=== PATIENT | female | born 1955 | race Caucasian/White ===

== ENCOUNTER 2016-05-27 09:23 | Emergency (ER) | payer OTHER ==
[~2016-05-27] VITALS: Ht 144.8 cm; Wt 63.0 kg
[~2016-05-27 09:23] MED LIST: ADVA250A INH; ALAV10TA PO; ASTE137S5; BONI150T PO; CEPH500C3 PO; DYAZ37.57 PO; LISI-360 PO; MONT10TA2 PO; PERC5TAB12 PO; [UNRECOGNIZED DRUG - OTHER]
[2016-05-27 09:28] VITALS: BP 148/98; PULSE 73; RESP 16; TEMP 98.4; O2SAT 100
[2016-05-27] MEDS ORDERED: RABIES IMMUNE GLOBULIN INJ 1,500 UNITS/10 ML VIAL IM STA (10:00)
[2016-05-27] MEDS ORDERED: RABIES VACCINE HUMAN DIPL CELL 2.5 UNITS/ML SYRINGE IM ONE (10:00)
[2016-05-27] MEDS ORDERED: TETANUS/DIPHTHERIA TOXOID ADULT 0.5 ML VIAL IM ONE (10:00)
--- NOTE | 2016-05-27 10:07 | PD ---
HPI Chief Complaint: Bite or Sting Time Seen by Provider: 09:48 Travel History International Travel<30 days: No Contact w/Intl Traveler<30days: No Traveled to known affect area: No History of Present Illness HPI This 60-year-old female presents with complaint of possible raccoon bite. She says she was walking her dog last night around midnight. She went fast the car in an animal came out from under the car and bit her on the back of her leg. She thinks it was a raccoon but she is not quite sure. She has some burning at the site of the injury. Her tetanus is not up-to-date. PFSH Past Medical History Asthma: Yes Bipolar Disorder: Yes COPD: Yes Diabetes: Yes Hepatitis: Yes (HEPATITIS A, B, C) Hypertension: Yes Musculoskeletal: Yes (OA, osteroporosis) Respiratory: Yes (ASTHMA ;COPD,HX BRONCHITIS) Thyroid Disease: Yes (GOITER) ?: Not LMP: Diane- Menopausal: Yes Past Surgical History Abdominal Surgery: Yes (APPENDECTOMY) Gynecologic Surgery: Yes (HYSTERECTOMY MARIAN S&O) Hysterectomy: Yes Social History Alcohol Use: No Tobacco Use: Yes (1 PDD) Substance Use: No Allergies-Medications (Allergen,Severity, Reaction): Coded Allergies: Bee Sting (Verified Allergy, Severe, Anaphylaxis, 05/27/16) Codeine (Verified Allergy, Severe, N/V, hives, 05/27/16) Morphine (Verified Allergy, Severe, Hives, edema, 05/27/16) Simvastatin (Verified Allergy, Intermediate, Muscle cramps, 05/27/16) "All -statins" Reported Meds & Prescriptions Reported Meds & Active Scripts Active Reported Omeprazole 40 Mg Cap 40 Mg PO DAILY Percocet (Oxycodone-Acetaminophen) 7.5-325 mg Tab 1 Tab PO TID Claritin (Loratadine) 10 Mg Cap 10 Mg PO DAILY Montelukast (Montelukast Sodium) 4 Mg Chew 4 Mg CHEW HS Vitamin D (Cholecalciferol) 1,000 Unit Cap 1,000 Units PO DAILY Ventolin Hfa 18 GM Inh (Albuterol Sulfate) 90 Mcg/Act Aer 1 Puff INH Q4H PRN Albuterol Neb (Albuterol Sulfate) 0.63 Mg/3 Ml Neb 0.63 Mg NEB TID NEB PRN Advair Diskus Inh (Fluticasone-Salmeterol Inh) 250-50 Mcg/Blist Aer 1 Puff INH BID Rinse mouth after use. Lisinopril 10 Mg Tab 10 Mg PO DAILY Triamterene-Hydrochlorothiazide 37.5-25 Mg Tab 0.5 Tab PO DAILY Review of Systems General / Constitutional: No: Fever, Chills Eyes: No: Diploplia, Blurred Vision HENT: No: Headaches Cardiovascular: No: Chest Pain or Discomfort, Palpitations Respiratory: No: Cough Gastrointestinal: No: Nausea, Vomiting Genitourinary: No: Frequency, Dysuria Musculoskeletal: No: Myalgias, Arthralgias Skin: No Rash Physical Exam Narrative GENERAL: Well-developed female SKIN: Warm and dry. HEAD: Atraumatic. Normocephalic. EYES: Pupils equal and round. No scleral icterus. No injection or drainage. ENT: No nasal bleeding or discharge. Mucous membranes pink and moist. NECK: Trachea midline. No JVD. . MUSCULOSKELETAL: No obvious deformities. No clubbing. No cyanosis. No edema. There are 2 puncture wounds on the back of the left calf. They're not actively bleeding. There is no erythema or drainage. NEUROLOGICAL: Awake and alert. No obvious cranial nerve deficits. Motor grossly within normal limits. Normal speech. PSYCHIATRIC: Appropriate mood and affect; insight and judgment normal. Data Data Last Documented VS Vital Signs Date Time Temp Pulse Resp B/P Pulse Ox O2 Delivery O2 Flow Rate FiO2 05/27/16 09:28 98.4 73 16 148/98 100 Orders Tetanus/Diphtheria Tox Adult (Tetanus/Di (05/27/16 10:00) Rabies Vaccine Human Cell Inj (Imovax In (05/27/16 10:00) Rabies Immune Globulin Inj (Hyperrab S/D (05/27/16 10:00) MDM Medical Decision Making Medical Screen Exam Complete: Yes Emergency Medical Condition: Yes Medical Record Reviewed: Yes Differential Diagnosis Differential includes animal bite, possible rabies exposure Narrative Course This was an unprovoked attack and the patient believes that it was a raccoon. We will initiate rabies prophylaxis. Tetanus will be updated Procedures Procedure Narrative 6 ML's of rabies immune globulin was infiltrated around the wound on the left posterior calf Diagnosis Primary Impression: Bitten by raccoon, initial encounter Additional Impression: Need for post exposure prophylaxis for rabies Additional Instructions: Additional vaccine as needed on days 3,7 and 14. Follow-up with health Department or return here if they are not open Disposition: 01 DISCHARGE HOME Condition: Stable Jah Ruiz MD May 27, 2016 10:07
[2016-05-27] MEDS ORDERED: CLAR10CA3 PO (10:12)
[2016-05-27] MEDS ORDERED: ADVA250A INH (10:12)
[2016-05-27] MEDS ORDERED: OMEP40CA2 PO (10:12)
[2016-05-27] MEDS ORDERED: VENTAER INH (10:12)
[2016-05-27] MEDS ORDERED: MONT4CHW4 CHEW (10:12)
[2016-05-27] MEDS ORDERED: VITA100032 PO (10:12)
[2016-05-27] MEDS ORDERED: LISI10TA3 PO (10:12)
[2016-05-27] MEDS ORDERED: PERC7.5T13 PO (10:12)
[2016-05-27] MEDS ORDERED: TRIA37.5 PO (10:12)
[2016-05-27] MEDS ORDERED: ALBU0.63 NEB (10:12)
== END 2016-05-27 11:20 | disposition home or self-care (01) ==
LOC: PHED 09:23
DX: S81.852A Open bite, left lower leg, initial encounter (principal); J45.909 Unspecified asthma, uncomplicated; J44.9 Chronic obstructive pulmonary disease, unspecified; I10 Essential (primary) hypertension; W55.51XA Bitten by raccoon, initial encounter; Y93.K1 Activity, walking an animal; Y92.014 Private driveway to single-family (private) house as the place of occurrence of the external cause; Z23 Encounter for immunization; B15.9 Hepatitis A without hepatic coma; E11.9 Type 2 diabetes mellitus without complications; Z72.0 Tobacco use; Y99.8 Other external cause status
CPT/HCPCS: 90375; 90471; 90472; 90675; 90714; 96372

== ENCOUNTER 2016-05-30 13:04 | Emergency (ER) | payer OTHER ==
[~2016-05-30] VITALS: Ht 144.8 cm; Wt 63.0 kg
[~2016-05-30 13:04] MED LIST changes: -ALAV10TA PO; +ALBU0.63 NEB; -ASTE137S5; -BONI150T PO; -CEPH500C3 PO; +CLAR10CA3 PO; -DYAZ37.57 PO; -LISI-360 PO; +LISI10TA3 PO; -MONT10TA2 PO; +MONT4CHW4 CHEW; +OMEP40CA2 PO; -PERC5TAB12 PO; +PERC7.5T13 PO; +TRIA37.5 PO; +VENTAER INH; +VITA100032 PO; -[UNRECOGNIZED DRUG - OTHER]
[2016-05-30 13:08] VITALS: BP 139/81; PULSE 97; RESP 16; TEMP 98.1; O2SAT 97
[2016-05-30] MEDS ORDERED: RABIES VACCINE HUMAN DIPL CELL 2.5 UNITS/ML SYRINGE IM ONE (14:15)
--- NOTE | 2016-05-30 14:23 | PD ---
HPI Chief Complaint: Wound/Suture/Staple Re-Check Time Seen by Provider: 14:07 Travel History International Travel<30 days: No Contact w/Intl Traveler<30days: No Traveled to known affect area: No History of Present Illness HPI 60-year-old female presents for her repeat vaccination of rabies today. She denies any new complaints. PFSH Past Medical History Arthritis: Yes Asthma: Yes Bipolar Disorder: Yes Cardiovascular Problems: No COPD: Yes Diabetes: Yes (States borderline) Patient Takes Glucophage: No GERD: Yes Hepatitis: Yes (A, B, C) Hiatal Hernia: Yes Hypertension: Yes Medical other: Yes (GERD; ARTHRITIS,ELEVATED CHOLESTEROL) Musculoskeletal: Yes (OA, osteroporosis, chronic back pain ) Respiratory: Yes (ASTHMA ;COPD,HX BRONCHITIS) Thyroid Disease: Yes (Goiter) Menopausal: Yes Past Surgical History Abdominal Surgery: Yes (APPENDECTOMY) Appendectomy: Yes Cholecystectomy: Yes Gynecologic Surgery: Yes (HYSTERECTOMY MARIAN S&O) Hysterectomy: Yes Joint Replacement: Yes (BL knees) Other Surgery: Yes (Jaw w/ hardware) Social History Alcohol Use: Yes (Occ.) Tobacco Use: Yes (1 PDD) Substance Use: No Allergies-Medications (Allergen,Severity, Reaction): Coded Allergies: Bee Sting (Verified Allergy, Severe, Anaphylaxis, 05/30/16) Codeine (Verified Allergy, Severe, N/V, hives, 05/30/16) Morphine (Verified Allergy, Severe, Hives, edema, 05/30/16) Simvastatin (Verified Allergy, Intermediate, Muscle cramps, 05/30/16) "All -statins" Reported Meds & Prescriptions Reported Meds & Active Scripts Active Reported Omeprazole 40 Mg Cap 40 Mg PO DAILY Percocet (Oxycodone-Acetaminophen) 7.5-325 mg Tab 1 Tab PO TID Claritin (Loratadine) 10 Mg Cap 10 Mg PO DAILY Montelukast (Montelukast Sodium) 4 Mg Chew 4 Mg CHEW HS Vitamin D (Cholecalciferol) 1,000 Unit Cap 1,000 Units PO DAILY Ventolin Hfa 18 GM Inh (Albuterol Sulfate) 90 Mcg/Act Aer 1 Puff INH Q4H PRN Albuterol Neb (Albuterol Sulfate) 0.63 Mg/3 Ml Neb 0.63 Mg NEB TID NEB PRN Advair Diskus Inh (Fluticasone-Salmeterol Inh) 250-50 Mcg/Blist Aer 1 Puff INH BID Rinse mouth after use. Lisinopril 10 Mg Tab 10 Mg PO DAILY Triamterene-Hydrochlorothiazide 37.5-25 Mg Tab 0.5 Tab PO DAILY Review of Systems Except as stated in HPI: all other systems reviewed are Neg Physical Exam Narrative General: No apparent distress, well appearing Skin: Left bite site without active signs of infection and well healing Neck: Neck is supple, trachea is midline Cardiovascular: Regular rate and rhythm Lungs: No increased respiratory effort noted Extremities: No edema Neuro: Awake, motor and sensation grossly intact, normal speech Data Data Last Documented VS Vital Signs Date Time Temp Pulse Resp B/P Pulse Ox O2 Delivery O2 Flow Rate FiO2 05/30/16 13:08 98.1 97 16 139/81 97 Orders Rabies Vaccine Human Cell Inj (Imovax In (05/30/16 14:15) [facility] Medical Decision Making Medical Screen Exam Complete: Yes Emergency Medical Condition: Yes Medical Record Reviewed: Yes (past history confirmed) Differential Diagnosis Rabies vaccination, infection, wound check Narrative Course Wound is healing appropriately. We'll give day 3 of rabies vaccination. Questions answered and given return instructions Diagnosis Primary Impression: Need for post exposure prophylaxis for rabies Patient Instructions: General Instructions Med/Other Pt SpecificInfo: No Change to Meds Disposition: 01 DISCHARGE HOME Condition: Stable Lupis Zelaya MD May 30, 2016 14:23
== END 2016-05-30 14:56 | disposition home or self-care (01) ==
LOC: PHED 13:04
DX: S81.852D Open bite, left lower leg, subsequent encounter (principal); E11.9 Type 2 diabetes mellitus without complications; J44.9 Chronic obstructive pulmonary disease, unspecified; I10 Essential (primary) hypertension; E07.9 Disorder of thyroid, unspecified; F17.210 Nicotine dependence, cigarettes, uncomplicated; Z23 Encounter for immunization
CPT/HCPCS: 90471; 90675

== ENCOUNTER 2016-06-03 07:35 | Emergency (ER) | payer OTHER ==
[~2016-06-03] VITALS: Ht 144.8 cm; Wt 61.4 kg
[2016-06-03 07:40] VITALS: BP 130/83; PULSE 93; RESP 18; TEMP 97.9; O2SAT 97
[2016-06-03] MEDS ORDERED: RABIES VACCINE HUMAN DIPL CELL 2.5 UNITS/ML SYRINGE IM ONE (08:00)
--- NOTE | 2016-06-03 08:14 | PD ---
HPI . Rabies vaccine Chief Complaint: Bite or Sting Time Seen by Provider: 07:48 Travel History International Travel<30 days: No Contact w/Intl Traveler<30days: No Traveled to known affect area: No History of Present Illness HPI The patient is here for her third rabies vaccine following a raccoon bite. She states that the bite is doing well. She was bitten on the left lower extremity. She states that she had some numbness and tingling in her left arm and left leg hours following the second rabies vaccine. She was subsequently seen by her primary care provider who contacted the [place] Rabies Control Hotline. They felt that this might represent an allergic reaction to the rabies vaccine and suggested that she be pretreated with an antihistamine prior to her next 2 vaccine. They recommended either Benadryl or Zyrtec. Patient reports that she has not taken either of these this morning. PFSH Past Medical History Arthritis: Yes Asthma: Yes Bipolar Disorder: Yes Cardiovascular Problems: No COPD: Yes Diabetes: No (States borderline) GERD: Yes Hepatitis: Yes (A, B, C) Hiatal Hernia: Yes Hypertension: Yes Medical other: Yes (GERD; ARTHRITIS,ELEVATED CHOLESTEROL) Musculoskeletal: Yes (OA, osteroporosis, chronic back pain ) Respiratory: Yes (ASTHMA ;COPD,HX BRONCHITIS) Thyroid Disease: Yes (Goiter) Tetanus Vaccination: < 5 Years ?: Not Menopausal: Yes Past Surgical History Abdominal Surgery: Yes (APPENDECTOMY) Appendectomy: Yes Cholecystectomy: Yes Gynecologic Surgery: Yes (HYSTERECTOMY MARIAN S&O) Hysterectomy: Yes Joint Replacement: Yes (BL knees) Other Surgery: Yes (Jaw w/ hardware) Social History Alcohol Use: Yes (Occ. wine) Tobacco Use: Yes (1 PDD) Substance Use: No Allergies-Medications (Allergen,Severity, Reaction): Coded Allergies: Bee Sting (Verified Allergy, Severe, Anaphylaxis, 06/03/16) Codeine (Verified Allergy, Severe, N/V, hives, 06/03/16) Morphine (Verified Allergy, Severe, Hives, edema, 06/03/16) Simvastatin (Verified Allergy, Intermediate, Muscle cramps, 06/03/16) "All -statins" Reported Meds & Prescriptions Reported Meds & Active Scripts Active Reported Omeprazole 40 Mg Cap 40 Mg PO DAILY Percocet (Oxycodone-Acetaminophen) 7.5-325 mg Tab 1 Tab PO TID Claritin (Loratadine) 10 Mg Cap 10 Mg PO DAILY Montelukast (Montelukast Sodium) 4 Mg Chew 4 Mg CHEW HS Vitamin D (Cholecalciferol) 1,000 Unit Cap 1,000 Units PO DAILY Ventolin Hfa 18 GM Inh (Albuterol Sulfate) 90 Mcg/Act Aer 1 Puff INH Q4H PRN Albuterol Neb (Albuterol Sulfate) 0.63 Mg/3 Ml Neb 0.63 Mg NEB TID NEB PRN Advair Diskus Inh (Fluticasone-Salmeterol Inh) 250-50 Mcg/Blist Aer 1 Puff INH BID Rinse mouth after use. Lisinopril 10 Mg Tab 10 Mg PO DAILY Triamterene-Hydrochlorothiazide 37.5-25 Mg Tab 0.5 Tab PO DAILY Review of Systems Except as stated in HPI: all other systems reviewed are Neg General / Constitutional: No: Fever, Chills Skin: Positive Other (healing raccoon bite to the left lower extremity) Neurologic: Positive: Paresthesia (which have now resolved) Physical Exam Narrative GENERAL: Awake and alert and in no acute distress. SKIN: Warm and dry. She has some Band-Aids on her left lower extremity covering the raccoon bite. The surrounding skin is not red or hot or swollen or tender. CARDIOVASCULAR: Regular rate and rhythm. RESPIRATORY: No accessory muscle use. MUSCULOSKELETAL: No obvious deformities. No edema. NEUROLOGICAL: Awake and alert. No obvious cranial nerve deficits. Motor grossly within normal limits. Normal speech. PSYCHIATRIC: Appropriate mood and affect; insight and judgment normal. Data Data Last Documented VS Vital Signs Date Time Temp Pulse Resp B/P Pulse Ox O2 Delivery O2 Flow Rate FiO2 06/03/16 07:59 88 16 06/03/16 07:40 97.9 130/83 97 Orders Rabies Vaccine Human Cell Inj (Imovax In (06/03/16 08:00) Diphenhydramine (Benadryl) (06/03/16 08:15) [facility] Medical Decision Making Medical Screen Exam Complete: Yes Emergency Medical Condition: Yes Differential Diagnosis My differential diagnosis of a wound check includes but is not limited to normal healing, delayed healing, localized wound infection, cellulitis, sepsis Narrative Course Patient is here for rabies vaccine #3. She needs pretreated with Benadryl. Diagnosis Primary Impression: Need for post exposure prophylaxis for rabies Patient Instructions: General Instructions, Rabies Vaccine (By injection) Disposition: 01 DISCHARGE HOME Condition: Stable Maryam Godwin MD Jun 03, 2016 08:14
[2016-06-03] MEDS ORDERED: diphenhydrAMINE HCL 25 MG CAP PO ONE (08:15)
== END 2016-06-03 08:37 | disposition home or self-care (01) ==
LOC: PHED 07:35
DX: S81.852D Open bite, left lower leg, subsequent encounter (principal); W55.51XD Bitten by raccoon, subsequent encounter; Z23 Encounter for immunization
CPT/HCPCS: 90471; 90675

== ENCOUNTER 2016-06-10 08:29 | Emergency (ER) | payer OTHER ==
[~2016-06-10] VITALS: Ht 144.8 cm; Wt 62.0 kg
[2016-06-10 08:47] VITALS: BP 134/88; PULSE 79; RESP 16; TEMP 98.1; O2SAT 98
--- NOTE | 2016-06-10 08:57 | PD ---
HPI Chief Complaint: Wound/Suture/Staple Re-Check Time Seen by Provider: 08:57 Travel History International Travel<30 days: No Contact w/Intl Traveler<30days: No Traveled to known affect area: No History of Present Illness HPI 60-year-old female came to the emergency room to get her last rabies vaccine. She was bitten by a raccoon that could not be accounted for. She says that with the first rabies vaccine she started developing tingling and numbness which as per Department of Health was a normal reaction. They recommended Benadryl and hence patient has been taking Benadryl prior to each vaccine. She requested one today. She also said that she is also been coughing. Patient is a smoker. Vital signs were otherwise stable. [facility] Past Medical History Narrative Medical List of her past medical, surgical, social and family history is reviewed from the nursing note. Hx Anticoagulant Therapy: No Arthritis: Yes Asthma: Yes Bipolar Disorder: Yes Cardiovascular Problems: Yes (HTN, CHOL) COPD: Yes Diabetes: No GERD: Yes Hepatitis: Yes (A, B, C) Hiatal Hernia: Yes Hypertension: Yes Musculoskeletal: Yes (OA, osteroporosis, chronic back pain ) Respiratory: Yes (ASTHMA ;COPD,HX BRONCHITIS) Thyroid Disease: Yes (Goiter) ?: Not Menopausal: Yes Past Surgical History Abdominal Surgery: Yes (APPENDECTOMY) Appendectomy: Yes Cholecystectomy: Yes Gynecologic Surgery: Yes (HYSTERECTOMY MARIAN S&O) Hysterectomy: Yes Joint Replacement: Yes (BL knees) Other Surgery: Yes (Jaw w/ hardware) Social History Alcohol Use: Yes (Occ. wine) Tobacco Use: Yes (1 PDD) Substance Use: No Allergies-Medications (Allergen,Severity, Reaction): Coded Allergies: Bee Sting (Verified Allergy, Severe, Anaphylaxis, 06/11/16) Codeine (Verified Allergy, Severe, N/V, hives, 06/11/16) Morphine (Verified Allergy, Severe, Hives, edema, 06/11/16) Rabies Vaccine (Verified Allergy, Severe, Numbness, 06/11/16) Simvastatin (Verified Allergy, Intermediate, Muscle cramps, 06/11/16) "All -statins" Comments List of her allergies reviewed from the nursing note. Reported Meds & Prescriptions Reported Meds & Active Scripts Active Metronidazole 500 Mg Tab 500 Mg PO BID 10 Days Cipro (Ciprofloxacin HCl) 500 Mg Tab 500 Mg PO BID 10 Days Reported Benadryl Allergy (Diphenhydramine HCl) 25 Mg Tab 25 Mg PO Q6H PRN Omeprazole 40 Mg Cap 40 Mg PO DAILY Percocet (Oxycodone-Acetaminophen) 7.5-325 mg Tab 1 Tab PO TID Claritin (Loratadine) 10 Mg Cap 10 Mg PO DAILY Montelukast (Montelukast Sodium) 4 Mg Chew 4 Mg CHEW HS Vitamin D (Cholecalciferol) 1,000 Unit Cap 1,000 Units PO DAILY Ventolin Hfa 18 GM Inh (Albuterol Sulfate) 90 Mcg/Act Aer 1 Puff INH Q4H PRN Albuterol Neb (Albuterol Sulfate) 0.63 Mg/3 Ml Neb 0.63 Mg NEB TID NEB PRN Advair Diskus Inh (Fluticasone-Salmeterol Inh) 250-50 Mcg/Blist Aer 1 Puff INH BID Rinse mouth after use. Lisinopril 10 Mg Tab 10 Mg PO DAILY Triamterene-Hydrochlorothiazide 37.5-25 Mg Tab 0.5 Tab PO DAILY Narrative Medication List of her home medications reviewed from the nursing note. Review of Systems Except as stated in HPI: all other systems reviewed are Neg Physical Exam Narrative GENERAL: Awake, alert, no obvious distress SKIN: Focused skin assessment warm/dry. HEAD: Atraumatic. Normocephalic. EYES: Pupils equal and round. No scleral icterus. No injection or drainage. ENT: No nasal bleeding or discharge. Mucous membranes pink and moist. NECK: Trachea midline. No JVD. CARDIOVASCULAR: Regular rate and rhythm. No murmur appreciated. RESPIRATORY: No accessory muscle use. Clear to auscultation. Breath sounds equal bilaterally. GASTROINTESTINAL: Abdomen soft, non-tender, nondistended. Hepatic and splenic margins not palpable. MUSCULOSKELETAL: No obvious deformities. No clubbing. No cyanosis. No edema. NEUROLOGICAL: Awake and alert. No obvious cranial nerve deficits. Motor grossly within normal limits. Normal speech. PSYCHIATRIC: Appropriate mood and affect; insight and judgment normal. Data Data Last Documented VS Vital Signs Date Time Temp Pulse Resp B/P Pulse Ox O2 Delivery O2 Flow Rate FiO2 06/10/16 10:49 83 16 144/68 98 06/10/16 08:47 98.1 Orders Diphenhydramine (Benadryl) (06/10/16 09:15) Rabies Vaccine Human Cell Inj (Imovax In (06/10/16 09:15) MDM Medical Decision Making Medical Screen Exam Complete: Yes Emergency Medical Condition: Yes Medical Record Reviewed: Yes Differential Diagnosis Rabies vaccine, cough, bronchitis Narrative Course 10:07 AM patient was given Benadryl. When she gets the rabies vaccine she could be discharged home Procedures EKG Prior to Arrival: No Diagnosis Primary Impression: Need for post exposure prophylaxis for rabies Additional Impressions: Needs smoking cessation education Cough Referrals: Primary Care Physician 3 days Additional Instructions: Please return to the ER if the condition worsens or any other new concerns. Otherwise follow-up with your primary care. Med/Other Pt SpecificInfo: No Change to Meds Disposition: 01 DISCHARGE HOME Condition: Stable Lionel Caal MD Jun 10, 2016 08:57
[2016-06-10] MEDS ORDERED: BENA25TA3 PO (08:59)
[2016-06-10] MEDS ORDERED: diphenhydrAMINE HCL 25 MG CAP PO ONE (09:15)
[2016-06-10] MEDS ORDERED: RABIES VACCINE HUMAN DIPL CELL 2.5 UNITS/ML SYRINGE IM ONE (09:15)
[2016-06-10 10:49] VITALS: BP 144/68
== END 2016-06-10 10:50 | disposition home or self-care (01) ==
LOC: PHED 08:29
DX: Z20.3 Contact with and (suspected) exposure to rabies (principal); Z23 Encounter for immunization; Z87.39 Personal history of other diseases of the musculoskeletal system and connective tissue; Z87.09 Personal history of other diseases of the respiratory system; Z86.59 Personal history of other mental and behavioral disorders; Z86.79 Personal history of other diseases of the circulatory system; Z87.19 Personal history of other diseases of the digestive system; R05 Cough; F17.200 Nicotine dependence, unspecified, uncomplicated; I10 Essential (primary) hypertension; E07.9 Disorder of thyroid, unspecified
CPT/HCPCS: 90471; 90675

== ENCOUNTER 2016-06-11 20:55 | Observation (INO) | payer OTHER ==
[2016-06-11] VITALS (10 sets, daily range): BP systolic 99–135; BP diastolic 65–87; PULSE 78–120; RESP 18–20; TEMP 97.7; O2SAT 95–100
[~2016-06-11] VITALS: Ht 144.8 cm; Wt 85.0 kg
[~2016-06-11 20:55] MED LIST changes: +BENA25TA3 PO
[2016-06-11] MEDS ORDERED: ONDANSETRON HCL 4 MG/2 ML VIAL IV PUSH ONE (21:30)
[2016-06-11] MEDS ORDERED: SODIUM CHLOR 0.9% 1000 ML INJ 1,000 ML IV ONE ×3 (21:30→21:45)
--- NOTE | 2016-06-11 21:31 | PD ---
HPI Chief Complaint: GI Complaint Time Seen by Provider: 21:13 Travel History International Travel<30 days: No Contact w/Intl Traveler<30days: No Traveled to known affect area: No History of Present Illness HPI This 60-year-old female is complaining of vomiting and diarrhea. Says she had vomiting and diarrhea throughout the day. She was bitten by a raccoon on May 26 and has been getting the series of rabies shots. She had her last injection yesterday been having some paresthesias of the arms and legs that she's been told her adverse reactions from the rabies. His been having vomiting and diarrhea throughout the day today. She is feeling very weak and dizzy and he has a history of borderline diabetes. She says that yesterday after receiving her rabies immunization her blood pressure was low and she did not take her blood pressure medicine. PFSH Past Medical History Hx Anticoagulant Therapy: No Arthritis: Yes Asthma: Yes Bipolar Disorder: Yes Cardiovascular Problems: Yes (HTN, CHOL) COPD: Yes Diabetes: No GERD: Yes Hepatitis: Yes (A, B, C) Hiatal Hernia: Yes Hypertension: Yes Musculoskeletal: Yes (OA, osteroporosis, chronic back pain ) Respiratory: Yes (ASTHMA ;COPD,HX BRONCHITIS) Thyroid Disease: Yes (Goiter) ?: Not Menopausal: Yes Past Surgical History Abdominal Surgery: Yes (APPENDECTOMY) Appendectomy: Yes Cholecystectomy: Yes Gynecologic Surgery: Yes (HYSTERECTOMY MARIAN S&O) Hysterectomy: Yes Joint Replacement: Yes (BL knees) Other Surgery: Yes (Jaw w/ hardware) Social History Alcohol Use: Yes (Occ. wine) Tobacco Use: Yes (1 PDD) Substance Use: No Allergies-Medications (Allergen,Severity, Reaction): Coded Allergies: Bee Sting (Verified Allergy, Severe, Anaphylaxis, 06/11/16) Codeine (Verified Allergy, Severe, N/V, hives, 06/11/16) Morphine (Verified Allergy, Severe, Hives, edema, 06/11/16) Rabies Vaccine (Verified Allergy, Severe, Numbness, 06/11/16) Simvastatin (Verified Allergy, Intermediate, Muscle cramps, 06/11/16) "All -statins" Reported Meds & Prescriptions Reported Meds & Active Scripts Active Reported Benadryl Allergy (Diphenhydramine HCl) 25 Mg Tab 25 Mg PO Q6H PRN Omeprazole 40 Mg Cap 40 Mg PO DAILY Percocet (Oxycodone-Acetaminophen) 7.5-325 mg Tab 1 Tab PO TID Claritin (Loratadine) 10 Mg Cap 10 Mg PO DAILY Montelukast (Montelukast Sodium) 4 Mg Chew 4 Mg CHEW HS Vitamin D (Cholecalciferol) 1,000 Unit Cap 1,000 Units PO DAILY Ventolin Hfa 18 GM Inh (Albuterol Sulfate) 90 Mcg/Act Aer 1 Puff INH Q4H PRN Albuterol Neb (Albuterol Sulfate) 0.63 Mg/3 Ml Neb 0.63 Mg NEB TID NEB PRN Advair Diskus Inh (Fluticasone-Salmeterol Inh) 250-50 Mcg/Blist Aer 1 Puff INH BID Rinse mouth after use. Lisinopril 10 Mg Tab 10 Mg PO DAILY Triamterene-Hydrochlorothiazide 37.5-25 Mg Tab 0.5 Tab PO DAILY Review of Systems General / Constitutional: No: Fever, Chills Eyes: No: Diploplia, Blurred Vision HENT: No: Headaches Cardiovascular: No: Chest Pain or Discomfort, Palpitations Respiratory: No: Shortness of Breath Gastrointestinal: Positive: Nausea, Vomiting, Diarrhea Genitourinary: No: Frequency Musculoskeletal: No: Myalgias Skin: No Rash, No Itching Neurologic: Positive: Weakness, Dizziness, No: Syncope, Focal Abnormalities Endocrine: No: Heat Intolerance Hematologic/Lymphatic: No: Easy Bruising Physical Exam Narrative GENERAL: Patient arrives quite pale and weak. Carotid pulses palpable peripheral pulses are not. Heart rate about 100. SKIN: Focused skin assessment:cool HEAD: Atraumatic. Normocephalic. EYES: Pupils equal and round. No scleral icterus. No injection or drainage. ENT: No nasal bleeding or discharge. Mucous membranes pink and moist. NECK: Trachea midline. No JVD. CARDIOVASCULAR: Regular rate and rhythm. No murmur appreciated. RESPIRATORY: No accessory muscle use. Clear to auscultation. Breath sounds equal bilaterally. GASTROINTESTINAL: Abdomen soft, non-tender, nondistended. Hepatic and splenic margins not palpable. MUSCULOSKELETAL: No obvious deformities. No clubbing. No cyanosis. No edema. NEUROLOGICAL: Awake and alert. No obvious cranial nerve deficits. Motor grossly within normal limits. Normal speech. PSYCHIATRIC: Appropriate mood and affect; insight and judgment normal. Data Data Last Documented VS Vital Signs Date Time Temp Pulse Resp B/P Pulse Ox O2 Delivery O2 Flow Rate FiO2 06/11/16 21:45 84 18 106/71 100 Room Air 06/11/16 21:01 97.7 Orders Electrocardiogram (06/11/16 21:17) Complete Blood Count With Diff (06/11/16 21:17) Comprehensive Metabolic Panel (06/11/16 21:17) Lipase (06/11/16 21:17) Urinalysis - C+S If Indicated (06/11/16 21:17) Sodium Chlor 0.9% 1000 Ml Inj (Ns 1000 M (06/11/16 21:30) Sodium Chlor 0.9% 1000 Ml Inj (Ns 1000 M (06/11/16 21:30) Ondansetron Inj (Zofran Inj) (06/11/16 21:30) Blood Culture (06/11/16 21:25) Lactic Acid Sepsis Protocol (06/11/16 21:25) Sodium Chlor 0.9% 1000 Ml Inj (Ns 1000 M (06/11/16 21:45) Potassium Chloride (Kcl) (06/11/16 22:15) Ns + Kcl 40 Meq Inj (Ns + Kcl 40 Meq Inj (06/11/16 22:15) Labs Laboratory Tests Test 06/11/16 21:30 White Blood Count 14.5 TH/MM3 Red Blood Count 4.59 MIL/MM3 Hemoglobin 14.4 GM/DL Hematocrit 42.2 % Mean Corpuscular Volume 91.9 FL Mean Corpuscular Hemoglobin 31.2 PG Mean Corpuscular Hemoglobin 34.0 % Concent Red Cell Distribution Width 12.1 % Platelet Count 418 TH/MM3 Mean Platelet Volume 8.4 FL Neutrophils (%) (Auto) 79.0 % Lymphocytes (%) (Auto) 15.0 % Monocytes (%) (Auto) 4.8 % Eosinophils (%) (Auto) 0.7 % Basophils (%) (Auto) 0.5 % Neutrophils # (Auto) 11.4 TH/MM3 Lymphocytes # (Auto) 2.2 TH/MM3 Monocytes # (Auto) 0.7 TH/MM3 Eosinophils # (Auto) 0.1 TH/MM3 Basophils # (Auto) 0.1 TH/MM3 CBC Comment DIFF FINAL Differential Comment Sodium Level 140 MEQ/L Potassium Level 3.7 MEQ/L Chloride Level 105 MEQ/L Carbon Dioxide Level 24.4 MEQ/L Anion Gap 11 MEQ/L Blood Urea Nitrogen 22 MG/DL Creatinine 1.30 MG/DL Estimat Glomerular Filtration 42 ML/MIN Rate Random Glucose 137 MG/DL Lactic Acid Level 1.4 mmol/L Calcium Level 9.1 MG/DL Total Bilirubin 0.3 MG/DL Aspartate Amino Transf 14 U/L (AST/SGOT) Alanine Aminotransferase 18 U/L (ALT/SGPT) Alkaline Phosphatase 65 U/L Total Protein 7.5 GM/DL Albumin 4.0 GM/DL Lipase 274 U/L [facility] Medical Decision Making Medical Screen Exam Complete: Yes Emergency Medical Condition: Yes Medical Record Reviewed: Yes Differential Diagnosis Differential includes dehydration, sepsis, hypersensitivity reaction Narrative Course Patient has been given 2 L of saline with improvement of her blood pressure. Her heart rate is come down to 70. Even is 22 with creatinine of 1.3. Review of information about the rabies vaccine indicates that it can cause vomiting and dehydration as well as hypersensitivity reactions Diagnosis Primary Impression: Gastroenteritis Additional Impressions: Dehydration possible adverse medication reaction Admitting Information Admitting Physician Requests: Observation Jah Ruiz MD Jun 11, 2016 21:31
[2016-06-11 21:41] LABS: AUTOMATED NEUTROPHIL # 11.4 TH/MM3 (1.8-7.7); BASOPHIL # 0.1 TH/MM3 (0-0.2); BASOPHIL % 0.5 % (0.0-2.0); EOSINOPHIL # 0.1 TH/MM3 (0-0.4); EOSINOPHIL % 0.7 % (0.0-4.0); HEMATOCRIT 42.2 % (35.0-46.0); HEMO FLAGS DIFF FINAL; LYMPHOCYTE # 2.2 TH/MM3 (1.0-4.8); MEAN CELL VOLUME 91.9 FL (80.0-100.0); MEAN CORPUSCULAR HEMOGLOBIN 31.2 PG (27.0-34.0); MONO % 4.8 % (0.0-8.0); PLATELET COUNT 418 TH/MM3 (150-450); RED BLOOD COUNT 4.59 MIL/MM3 (4.00-5.30); RED CELL DISTRIBUTION WIDTH 12.1 % (11.6-17.2); WHITE BLOOD COUNT 14.5 TH/MM3 (4.0-11.0)
[2016-06-11 21:49] LABS: CHLORIDE 105 MEQ/L (98-107); POTASSIUM 3.7 MEQ/L (3.5-5.1); SODIUM (NA) 140 MEQ/L (136-145)
[2016-06-11 21:53] LABS: ANION GAP 11 MEQ/L (5-15); BICARBONATE 24.4 MEQ/L (21.0-32.0)
[2016-06-11 21:54] LABS: BLOOD UREA NITROGEN 22 MG/DL (7-18)
[2016-06-11 21:56] LABS: ALT (GPT) 18 U/L (10-53); AST (GOT) 14 U/L (15-37); GLOMERULAR FILTRATION RATE 42 ML/MIN (>89)
[2016-06-11 21:58] LABS: TOTAL BILIRUBIN ADULT 0.3 MG/DL (0.2-1.0)
[2016-06-11 21:59] LABS: ALKALINE PHOSPHATASE 65 U/L (45-117)
[2016-06-11] MEDS ORDERED: NS + KCL 40 MEQ INJ 1,000 ML IV SCH (22:15)
[2016-06-11] MEDS ORDERED: POTASSIUM CHLORIDE 20 MEQ CONTROLLED RELEASE TAB PO ONE (22:15)
[2016-06-11] MEDS ORDERED: METOCLOPRAMIDE HCL 10 MG/2 ML VIAL IV PUSH ONE (22:30)
[2016-06-11] MEDS ORDERED: PANTOPRAZOLE SODIUM 40 MG VIAL IV PUSH ONE (22:30)
[2016-06-11] MEDS ORDERED: ALBUTEROL SULFATE 90 MCG/ACT HFA 8 GM INHALER INH PRN (23:00)
[2016-06-11] MEDS ORDERED: BISACODYL 10 MG SUPP RECTAL PRN (23:00)
[2016-06-11] MEDS ORDERED: ACETAMINOPHEN 325 MG TAB PO PRN (23:00)
[2016-06-11] MEDS ORDERED: ONDANSETRON HCL 4 MG/2 ML VIAL IVP PRN (23:00)
[2016-06-11] MEDS ORDERED: SODIUM CHLORIDE 0.9% FLUSH 10 ML FLUSH IV FLUSH PRN (23:00)
[2016-06-11 23:06] LABS: BLOOD, URINE NEG (NEG); GLUCOSE,URINE NEG (NEG); KETONE, URINE NEG (NEG); NITRITE,URINE NEG (NEG)
[2016-06-11] MEDS ORDERED: diphenhydrAMINE HCL 25 MG CAP PO PRN (23:15)
[2016-06-11 23:20] LABS: BACTERIA, URINE OCC /hpf; COMMENT (UR) CULT NOT INDICATED; CULTURE IF INDICATED CULT NOT INDICATED; RBC, URINE 0-3 /hpf (0-3); URINE COLOR YELLOW (YELLW/STRAW)
[2016-06-11] MEDS: CIPROFLOXACIN 400 MG PREMIX 200 ML IV SCH (23:26)
[2016-06-11] MEDS: SODIUM CHLOR 0.9% 1000 ML INJ 1,000 ML IV SCH (23:48)
[2016-06-12] VITALS (8 sets, daily range): BP systolic 100–118; BP diastolic 60–84; PULSE 76–93; RESP 18–20; TEMP 96–98.3; O2SAT 95–100
[2016-06-12] MEDS: metroNIDAZOLE 500 MG INJ 100 ML IV SCH ×3 (00:31→16:25)
[2016-06-12 08:06] LABS: AUTOMATED NEUTROPHIL # 4.6 TH/MM3 (1.8-7.7); BASOPHIL % 0.3 % (0.0-2.0); EOSINOPHIL # 0.1 TH/MM3 (0-0.4); HEMATOCRIT 28.7 % (35.0-46.0); HEMO FLAGS DIFF FINAL; LYMPH % 29.6 % (9.0-44.0); LYMPHOCYTE # 2.1 TH/MM3 (1.0-4.8); MEAN CELL VOLUME 92.7 FL (80.0-100.0); MEAN CORPUSCULAR HGB CONC 34.6 % (32.0-36.0); MONO % 5.8 % (0.0-8.0); NEUT % 63.3 % (16.0-70.0); WHITE BLOOD COUNT 7.2 TH/MM3 (4.0-11.0)
[2016-06-12 08:29] LABS: PLATELET COUNT 286 TH/MM3 (150-450)
[2016-06-12 08:56] LABS: BICARBONATE 22.2 MEQ/L (21.0-32.0); CALCIUM-PROTEIN CORRECTED 7.8 MG/DL (8.5-10.1); TOTAL BILIRUBIN ADULT 0.3 MG/DL (0.2-1.0)
[2016-06-12] MEDS ORDERED: NON-FORMULARY DRUG (Fluticasone-Salmeterol Inh (Advair Diskus Inh) 1 PUFF) INH SCH (09:00)
[2016-06-12] MEDS: SODIUM CHLORIDE 0.9% FLUSH 10 ML FLUSH IV FLUSH SCH ×2 (09:00→20:52)
[2016-06-12] MEDS: LORATADINE 10 MG TAB PO SCH (09:36)
[2016-06-12] MEDS: CHOLECALCIFEROL (VIT D3) 1000 UNIT TAB PO SCH (09:36)
[2016-06-12] MEDS: SODIUM CHLOR 0.9% 1000 ML INJ 1,000 ML IV SCH ×2 (09:38→20:28)
[2016-06-12] MEDS: LISINOPRIL 10 MG TAB PO SCH (10:27)
[2016-06-12] MEDS: CIPROFLOXACIN 400 MG PREMIX 200 ML IV SCH ×2 (10:28→23:20)
[2016-06-12] MEDS: NICOTINE 21 MG/24 HR PATCH T-DERMAL SCH (10:28)
[2016-06-12] MEDS: BUDESONIDE-FORMOTEROL 160/4.5 MCG INHALER INH SCH ×2 (10:30→20:51)
[2016-06-12] MEDS: oxyCODONE/ACETAMINOPHEN 7.5 MG/325 MG TAB PO PRN ×3 (11:02→23:21)
--- NOTE | 2016-06-12 11:25 | HHI.HP ---
[facility] Butch Frey MD Admission Diagnosis DEHYDRATION, GASTROENTERITIS, ADVERSE MEDICATION REACTION Diagnoses: Travel History International Travel<30 Days: No Contact w/Intl Traveler <30 Da: No Traveled to Known Affected Are: No History of Present Illness 60-year-old female with a history of hypertension, asthma, chronic lumbar spinal stenosis, who presents with acute onset nausea, nonbloody vomiting, profuse watery diarrhea starting Tuesday morning, accompanied with generalized malaise. No chest pain. Denies any fevers or chills. She currently reports that nausea and vomiting has resolved, however she is still having watery bowel movements, for today so far. She reports otherwise feeling well. She does report receiving antibiotics about one month ago for an upper respiratory infection which has resolved. Patient was recently bitten by a raccoon 2 weeks ago, and has been undergoing injections. Patient has completed her fourth injection on 06/10. Ports that 24 hours after each injection and she will get numbness and tingling in her fingers and toes. She again experienced this yesterday, it continues today but has almost resolved. She denies any weakness in her extremities, apart from bilateral legs with chronic lumbar spinal stenosis, weakness unchanged. Review of Systems Performed and negative except for history of present illness and past medical history. Past Family Social History Past Medical History GERD Hypertension Asthma COPD History of goiter Hypertension Osteoarthritis Lumbar spinal stenosis. Chronic. Arthritis Prediabetes Bipolar disorder Claustrophobia Hiatal hernia Hyperlipidemia not on treatment. Past Surgical History Appendectomy Cholecystectomy Bilateral salpingo-oophorectomy Bilateral total knee replacement. Reported Medications Reported Meds & Active Scripts Active Reported Benadryl Allergy (Diphenhydramine HCl) 25 Mg Tab 25 Mg PO Q6H PRN Omeprazole 40 Mg Cap 40 Mg PO DAILY Percocet (Oxycodone-Acetaminophen) 7.5-325 mg Tab 1 Tab PO TID Claritin (Loratadine) 10 Mg Cap 10 Mg PO DAILY Montelukast (Montelukast Sodium) 4 Mg Chew 4 Mg CHEW HS Vitamin D (Cholecalciferol) 1,000 Unit Cap 1,000 Units PO DAILY Ventolin Hfa 18 GM Inh (Albuterol Sulfate) 90 Mcg/Act Aer 1 Puff INH Q4H PRN Albuterol Neb (Albuterol Sulfate) 0.63 Mg/3 Ml Neb 0.63 Mg NEB TID NEB PRN Advair Diskus Inh (Fluticasone-Salmeterol Inh) 250-50 Mcg/Blist Aer 1 Puff INH BID Rinse mouth after use. Lisinopril 10 Mg Tab 10 Mg PO DAILY Triamterene-Hydrochlorothiazide 37.5-25 Mg Tab 0.5 Tab PO DAILY Allergies: Coded Allergies: Bee Sting (Verified Allergy, Severe, Anaphylaxis, 06/11/16) Codeine (Verified Allergy, Severe, N/V, hives, 06/11/16) Morphine (Verified Allergy, Severe, Hives, edema, 06/11/16) Rabies Vaccine (Verified Allergy, Severe, Numbness, 06/11/16) Simvastatin (Verified Allergy, Intermediate, Muscle cramps, 06/11/16) "All -statins" Family History Family history reviewed with the patient and found to be currently noncontributory. Social History Patient smokes one pack per day for many years. Drinks occasionally. Denies any illicit drugs. Physical Exam Vital Signs Vital Signs Date Time Temp Pulse Resp B/P Pulse Ox O2 Delivery O2 Flow Rate FiO2 06/12/16 08:00 97.3 84 20 118/84 97 06/12/16 04:00 06/12/16 03:41 18 06/12/16 02:30 96.9 92 18 107/79 96 06/12/16 02:08 80 18 106/69 95 06/12/16 01:00 98.3 93 18 112/75 100 Room Air 06/12/16 00:00 82 18 116/69 95 Room Air 06/11/16 23:30 90 18 119/73 95 Room Air 06/11/16 23:00 90 18 106/70 97 Room Air 06/11/16 22:45 90 18 105/73 99 Room Air 06/11/16 22:30 88 18 109/72 99 Room Air 06/11/16 22:25 90 18 100/65 99 Room Air 06/11/16 22:15 88 18 109/66 100 Room Air 06/11/16 22:00 90 18 135/87 99 Room Air 06/11/16 21:45 84 18 106/71 100 Room Air 06/11/16 21:35 78 20 99/68 99 Room Air 06/11/16 21:30 18 06/11/16 21:01 97.7 120 18 96 Physical Exam GENERAL: This is a well-nourished, well-developed patient, in no apparent distress. Alert and oriented 3. SKIN: No rashes, ecchymoses or lesions. Cool and dry. HEAD: Atraumatic. Normocephalic. No temporal or scalp tenderness. EYES: Pupils equal round and reactive. Extraocular motions intact. No scleral icterus. No injection or drainage. ENT: Nose without bleeding, purulent drainage or septal hematoma. Throat without erythema, tonsillar hypertrophy or exudate. Uvula midline. Airway patent. NECK: Trachea midline. No JVD or lymphadenopathy. Supple, nontender, no meningeal signs. CARDIOVASCULAR: Regular rate and rhythm without murmurs, gallops, or rubs. RESPIRATORY: Clear to auscultation. Breath sounds equal bilaterally. No wheezes , rales, or rhonchi. GASTROINTESTINAL: Abdomen soft, non-tender, nondistended. No hepato-splenomegaly , or palpable masses. No guarding. MUSCULOSKELETAL: Extremities without clubbing, cyanosis, or edema. No joint tenderness, effusion, or edema noted. No calf tenderness. Negative Homans sign bilaterally. I lateral knee scars. Deep tendon reflexes +2 bilateral lower extremity . Peripheral sensation intact. NEUROLOGICAL: Awake and alert. Cranial nerves II through XII intact. Motor and sensory grossly within normal limits. Five out of 5 muscle strength in all muscle groups. Normal speech. Laboratory Laboratory Tests Test 06/11/16 06/11/16 06/12/16 21:30 22:40 06:40 White Blood Count 14.5 7.2 Red Blood Count 4.59 3.10 Hemoglobin 14.4 9.9 Hematocrit 42.2 28.7 Mean Corpuscular Volume 91.9 92.7 Mean Corpuscular Hemoglobin 31.2 32.0 Mean Corpuscular Hemoglobin 34.0 34.6 Concent Red Cell Distribution Width 12.1 12.0 Platelet Count 418 286 Mean Platelet Volume 8.4 8.4 Neutrophils (%) (Auto) 79.0 63.3 Lymphocytes (%) (Auto) 15.0 29.6 Monocytes (%) (Auto) 4.8 5.8 Eosinophils (%) (Auto) 0.7 1.0 Basophils (%) (Auto) 0.5 0.3 Neutrophils # (Auto) 11.4 4.6 Lymphocytes # (Auto) 2.2 2.1 Monocytes # (Auto) 0.7 0.4 Eosinophils # (Auto) 0.1 0.1 Basophils # (Auto) 0.1 0.0 CBC Comment DIFF FINAL DIFF FINAL Differential Comment Sodium Level 140 145 Potassium Level 3.7 4.0 Chloride Level 105 115 Carbon Dioxide Level 24.4 22.2 Anion Gap 11 8 Blood Urea Nitrogen 22 17 Creatinine 1.30 0.84 Estimat Glomerular Filtration 42 69 Rate Random Glucose 137 91 Lactic Acid Level 1.4 Calcium Level 9.1 6.8 Total Bilirubin 0.3 0.3 Aspartate Amino Transf 14 9 (AST/SGOT) Alanine Aminotransferase 18 13 (ALT/SGPT) Alkaline Phosphatase 65 42 Total Protein 7.5 5.2 Albumin 4.0 2.7 Lipase 274 Urine Color YELLOW Urine Turbidity CLEAR Urine pH 6.0 Urine Specific Douglas 1.015 Urine Protein NEG Urine Glucose (UA) NEG Urine Ketones NEG Urine Occult Blood NEG Urine Nitrite NEG Urine Bilirubin NEG Urine Leukocyte Esterase TRACE Urine RBC 0-3 Urine WBC 3-5 Urine Squamous Epithelial 6-8 Cells Urine Bacteria OCC Microscopic Urinalysis Comment CULT NOT INDICATED Protein Corrected Calcium 7.8 Date/Time Procedure Status Source Growth 06/11/16 21:35 Aerobic Blood Culture - Preliminary Resulted Blood Peripheral NO GROWTH IN 1 DAY 06/11/16 21:35 Anaerobic Blood Culture - Preliminary Resulted Blood Peripheral NO GROWTH IN 1 DAY Result Diagram: 06/12/16 0640 06/12/16 0640 Assessment and Plan Assessment and Plan //Severe sepsis on admission. With leukocytosis, tachycardia, acute kidney injury. Gastroenteritis. //Acute gastroenteritis -Recent antibiotics. We'll check C. difficile Continue Cipro and Flagyl. -With hypotension IV fluids. -Continue to monitor vitals. Follow-up C. difficile testing //Recent recommend bite, having completed rabies shots. Numbness and tingling in extremities, could be secondary reaction to rabies shots. Recommend the patient avoids further bites/shots. //Nausea and vomiting. Resolved //Hypertension. The pressure currently acceptable. Hypertension on admission. We'll hold diuretics at this time. Continue to monitor. Continue lisinopril. //Chronic COPD, asthma. Table. Continue home medications. //GERD. Chronic. Continue PPI. //Tobacco abuse. Counseling provided. Cessation strongly advised. Lumbar spinal stenosis. Continue home pain medications. //Prophylaxis. Lovenox Code Status Full code Discussed Condition With Patient, nurse Physician Certification 2 Midnight Certification Type: Admission for Inpatient Services Order for Inpatient Services The services are ordered in accordance with Medicare regulations or non- Medicare payer requirements, as applicable. In the case of services not specified as inpatient-only, they are appropriately provided as inpatient services in accordance with the 2-midnight benchmark. Estimated LOS (days): 2 days is the estimated time the patient will need to remain in the hospital, assuming treatment plan goals are met and no additional complications. Post-Hospital Plan: Not yet determined David Almeida MD Jun 12, 2016 11:25
[2016-06-12] MEDS ORDERED: oxyCODONE/ACETAMINOPHEN 7.5 MG/325 MG TAB PO SCH (13:00)
[2016-06-12] MEDS: ENOXAPARIN SODIUM 40 MG/0.4 ML SYRINGE SQ SCH (13:06)
--- NOTE | 2016-06-12 14:36 | EKG ---
Date Performed: 06/11/2016 Time Performed: 21:29:38 PTAGE: 60 years EKG: Sinus rhythm . Compared to prior tracing no significant change Normal ECG PREVIOUS TRACING : 08/18/2009 10.58 DOCTOR: Neyda Albert Interpretating Date/Time 06/12/2016 14:33:44
[2016-06-12 16:52] LABS: CALCIUM-PROTEIN CORRECTED 7.8 MG/DL (8.5-10.1)
[2016-06-12] MEDS ORDERED: MONTELUKAST SODIUM 4 MG CHEWABLE TAB CHEW SCH (21:00)
[2016-06-12 21:29] LABS: C. DIFF EPI 027 PRESUMPTIVE NEGATIVE (NEGATIVE); C. DIFF TOXIN PCR NEGATIVE (NEGATIVE)
[2016-06-12] MEDS: PANTOPRAZOLE SOD 40 MG DELAYED RELEASE TAB PO SCH (23:35)
[2016-06-13 00:10] VITALS: BP 135/96; PULSE 71; RESP 22; TEMP 98; O2SAT 99
[2016-06-13] MEDS ORDERED: CALCIUM GLUCONATE INJ 1 GM in DEXTROSE 5% IN WATER 100ML INJ 100 ML IV ONE ×2 (00:30)
[2016-06-13] MEDS: metroNIDAZOLE 500 MG INJ 100 ML IV SCH ×2 (01:26→08:47)
[2016-06-13] MEDS: SODIUM CHLOR 0.9% 1000 ML INJ 1,000 ML IV SCH (04:50)
[2016-06-13] MEDS: oxyCODONE/ACETAMINOPHEN 7.5 MG/325 MG TAB PO PRN (05:52)
[2016-06-13 08:00] VITALS: BP 157/90; PULSE 71; RESP 20; TEMP 97.2; O2SAT 98
[2016-06-13 08:02] LABS: POTASSIUM 3.8 MEQ/L (3.5-5.1)
[2016-06-13 08:04] LABS: AUTOMATED NEUTROPHIL # 2.8 TH/MM3 (1.8-7.7); BASOPHIL % 0.4 % (0.0-2.0); EOSINOPHIL # 0.1 TH/MM3 (0-0.4); EOSINOPHIL % 1.7 % (0.0-4.0); HEMATOCRIT 29.9 % (35.0-46.0); HEMO FLAGS DIFF FINAL; LYMPH % 46.2 % (9.0-44.0); LYMPHOCYTE # 2.9 TH/MM3 (1.0-4.8); MEAN CELL VOLUME 92.6 FL (80.0-100.0); MEAN CORPUSCULAR HEMOGLOBIN 30.9 PG (27.0-34.0); MEAN CORPUSCULAR HGB CONC 33.4 % (32.0-36.0); MONO % 5.6 % (0.0-8.0); NEUT % 46.1 % (16.0-70.0); PLATELET COUNT 301 TH/MM3 (150-450); RED BLOOD COUNT 3.23 MIL/MM3 (4.00-5.30); RED CELL DISTRIBUTION WIDTH 12.4 % (11.6-17.2); WHITE BLOOD COUNT 6.1 TH/MM3 (4.0-11.0)
[2016-06-13 08:06] LABS: BICARBONATE 22.2 MEQ/L (21.0-32.0)
[2016-06-13] MEDS: BUDESONIDE-FORMOTEROL 160/4.5 MCG INHALER INH SCH (08:44)
[2016-06-13] MEDS: SODIUM CHLORIDE 0.9% FLUSH 10 ML FLUSH IV FLUSH SCH (08:45)
[2016-06-13] MEDS: NICOTINE 21 MG/24 HR PATCH T-DERMAL SCH (08:45)
[2016-06-13] MEDS: LISINOPRIL 10 MG TAB PO SCH (08:45)
[2016-06-13] MEDS: CHOLECALCIFEROL (VIT D3) 1000 UNIT TAB PO SCH (08:45)
[2016-06-13] MEDS: LORATADINE 10 MG TAB PO SCH (08:45)
[2016-06-13] MEDS: PANTOPRAZOLE SOD 40 MG DELAYED RELEASE TAB PO SCH (08:45)
[2016-06-13] MEDS ORDERED: REMOVE OLD PATCH T-DERMAL SCH (09:00)
[2016-06-13] MEDS: CIPROFLOXACIN 400 MG PREMIX 200 ML IV SCH (11:00)
[2016-06-13 11:49] VITALS: BP 142/99; PULSE 59; RESP 20; TEMP 96.6; O2SAT 99
[2016-06-13] MEDS: ENOXAPARIN SODIUM 40 MG/0.4 ML SYRINGE SQ SCH (12:00)
[2016-06-13] MEDS ORDERED: METR500T10 PO (12:00)
[2016-06-13] MEDS ORDERED: CIPR-9 PO (12:00)
--- NOTE | 2016-06-14 16:15 | HHI.PR ---
Subjective Remarks date of service 06/13/16. patient seen the morning of discharge. Says she is feeling well. Denies any chest pain or shortness of breath. Diarrhea has resolved. Numbness and tingling in all of her extremities has resolved. Feels like going home. Objective I/O 06/13/16 06/13/16 06/13/16 06/14/16 06/14/16 06/14/16 07:00 15:00 23:00 07:00 15:00 23:00 Intake Total 800 ml 240 ml Balance 800 ml 240 ml Intake Oral 240 ml IV Total 800 ml Result Diagram: 06/13/1672406/13/16724 Objective Remarks GENERAL: Sitting up in bed. Appears comfortable. Alert and oriented 3. SKIN: Warm and dry. HEAD: Normocephalic. EYES: No scleral icterus. No injection or drainage. NECK: Supple, trachea midline. No JVD. CARDIOVASCULAR: Regular rate and rhythm without murmurs, gallops, or rubs. RESPIRATORY: Breath sounds equal bilaterally. No accessory muscle use. GASTROINTESTINAL: Abdomen soft, non-tender, nondistended. MUSCULOSKELETAL: No cyanosis, or edema. BACK: Nontender without obvious deformity. No CVA tenderness. A/P Assessment and Plan //Severe sepsis on admission. With leukocytosis, tachycardia, acute kidney injury. Gastroenteritis. //Acute gastroenteritis -Recent antibiotics. We'll check C. difficile Continue Cipro and Flagyl. -With hypotension IV fluids. -She difficile testing is negative. -We'll continue on Cipro and Flagyl to complete course for likely infectious gastroenteritis. //Suspected infectious gastroenteritis No abdominal tenderness on admission Improving on antibiotics. Continue antibiotics to complete treatment course. //Recent raccoon bite, having completed rabies shots. Numbness and tingling in extremities, could be secondary reaction to rabies shots. Recommend the patient avoids further bites/shots. //Nausea and vomiting. Secondary to gastroenteritis. Resolved //Hypertension. The pressure currently acceptable. Hypertension on admission. We'll hold diuretics at this time. Continue to monitor. Continue lisinopril. //Chronic COPD, asthma. Table. Continue home medications. //GERD. Chronic. Continue PPI. //Tobacco abuse. Counseling provided. Cessation strongly advised. Lumbar spinal stenosis. Continue home pain medications. //Prophylaxis. Lovenox Discharge Planning Patient discharged home in good condition. Activity as tolerated. Diet heart healthy. No invasive procedures performed. Please see discharge medication reconciliation for medication list. Follow-up with primary care. David Almeida MD Jun 14, 2016 16:15
== END 2016-06-13 12:50 | disposition home or self-care (01) ==
LOC: PHED 20:55 → PHEDA 22:36 → PH3B 06-12 02:05
PROVIDERS: ADMIT Internal Medicine; ATTEND Internal Medicine
DX: N17.9 Acute kidney failure, unspecified (principal); R65.20 Severe sepsis without septic shock; K52.9 Noninfective gastroenteritis and colitis, unspecified; I10 Essential (primary) hypertension; J44.9 Chronic obstructive pulmonary disease, unspecified; K21.9 Gastro-esophageal reflux disease without esophagitis; F17.200 Nicotine dependence, unspecified, uncomplicated; M48.06 Spinal stenosis, lumbar region; B19.20 Unspecified viral hepatitis C without hepatic coma; M19.90 Unspecified osteoarthritis, unspecified site; F31.9 Bipolar disorder, unspecified; M81.0 Age-related osteoporosis without current pathological fracture; Z96.653 Presence of artificial knee joint, bilateral; Z79.51 Long term (current) use of inhaled steroids; Z88.5 Allergy status to narcotic agent; Z88.7 Allergy status to serum and vaccine; Z88.8 Allergy status to other drugs, medicaments and biological substances; Z91.030 Bee allergy status
CPT/HCPCS: 80048; 80053; 81001; 83605; 83690; 84155; 85025; 87040; 87493; 93005; 96361; 96374; 96375; 99285; C9113; G0378; J0610; J0744; J1650; J2405; J2765; J3480; J7030